=== PATIENT | female | born 1980 | race Caucasian/White ===

== ENCOUNTER 2016-05-27 00:03 | Observation (INO) | payer MEDICAID, OTHER ==
[~2016-05-27] VITALS: Ht 172.7 cm; Wt 89.4 kg
[~2016-05-27 00:03] MED LIST: ONDA4TAB7 PO; OXYC5TAB2 PO; PRAM1.5T7 PO; PRAM1TAB5 PO; ROBAXIN PO; SERT50TA PO
[2016-05-27] MEDS ORDERED: BUPR300T49 PO (00:26)
[2016-05-27] MEDS ORDERED: HYDROmorphone 1 MG/ML, 1ML IVPush PRN (01:00)
[2016-05-27] MEDS ORDERED: SODIUM CHLORIDE FLUSH 10ML SYR IVF PRN (01:00)
[2016-05-27] MEDS ORDERED: HYDROmorphone 1 MG/ML, 1ML ONE (01:10)
[2016-05-27 01:45] VITALS: BP 100/48
[2016-05-27 02:06] VITALS: BP 100/48
[2016-05-27] MEDS ORDERED: POLYETHYLENE GLYCOL 17 GM PACKET PO PRN (03:00)
[2016-05-27] MEDS ORDERED: DOCUSATE 100 MG CAPSULE PO PRN (03:00)
[2016-05-27] MEDS ORDERED: BISACODYL 10 MG SUPP PR PRN (03:00)
[2016-05-27] MEDS ORDERED: ONDANSETRON ODT 4 MG PO PRN (03:00)
[2016-05-27] MEDS ORDERED: ACETAMINOPHEN 325 MG TABLET PO PRN (03:00)
[2016-05-27] MEDS ORDERED: TRAZODONE 50MG TABLET PO PRN (03:00)
[2016-05-27] MEDS ORDERED: ENOXAPARIN 40 MG/0.4 ML SQ SCH (03:00)
[2016-05-27] MEDS ORDERED: LABETALOL 5MG/ML, 20ML IV PRN (03:00)
[2016-05-27] MEDS ORDERED: PRAMIPEXOLE 0.5MG TABLET PO SCH (03:30)
[2016-05-27] MEDS: BUPROPRION MC SCH ×2 (04:30→12:30)
[2016-05-27 05:25] LABS: HEMOGLOBIN 10.8 g/dL (11.7-16.4)
[2016-05-27] MEDS: HYDROcodone/APAP 5/325 TABLET PO PRN ×2 (05:28→12:04)
[2016-05-27 05:34] LABS: BLOOD UREA NITROGEN 12 mg/dL (7-18)
[2016-05-27 05:59] LABS: ASPARTATE AMINO TRANSFERASE 9 U/L (15-37); TOTAL IRON BINDING CAPACITY 380 mcg/dL (250-450)
[2016-05-27] MEDS: SODIUM CHLORIDE 0.9% 1,000 ML IV SCH ×2 (06:05→14:03)
[2016-05-27 07:32] VITALS: BP 103/51
[2016-05-27] MEDS: HYDROmorphone 2 MG/ML, 1ML IVPush PRN ×2 (08:55→15:46)
[2016-05-27] MEDS ORDERED: KETOROLAC 30 MG/1 ML IVPush PRN (09:00)
[2016-05-27] MEDS ORDERED: TEMPLATE NON-FORMULARY MED. (Bupropion Hcl** (Wellbutrin Xl**) 300 MG) PO SCH (09:00)
[2016-05-27] MEDS ORDERED: BUPROPION SR 150 MG TABLET PO SCH (09:00)
[2016-05-27] MEDS ORDERED: OXYcodone/APAP 5/325MG TABLET PO PRN (12:30)
[2016-05-27 14:18] VITALS: BP 106/68
[2016-05-27] MEDS ORDERED: OXYC1TAB7 PO (15:01)
[2016-05-28] MEDS ORDERED: SULF1TAB24 PO (16:05)
== END 2016-05-27 17:04 | disposition home or self-care (01) ==
LOC: ED 00:59 → INTOOBSV 01:00 → 4NOR 01:00 → ED 01:08 → 4WST 05:58 → DCLOUNGE 16:55
PROVIDERS: ADMIT Internal Medicine; ATTEND Internal Medicine
DX: S92.321A Displaced fracture of second metatarsal bone, right foot, initial encounter for closed fracture (principal); S92.331A Displaced fracture of third metatarsal bone, right foot, initial encounter for closed fracture; S92.341A Displaced fracture of fourth metatarsal bone, right foot, initial encounter for closed fracture; K21.9 Gastro-esophageal reflux disease without esophagitis; G25.81 Restless legs syndrome; G89.29 Other chronic pain; M54.9 Dorsalgia, unspecified; E66.9 Obesity, unspecified; F32.9 Major depressive disorder, single episode, unspecified; F15.90 Other stimulant use, unspecified, uncomplicated; R55 Syncope and collapse; W18.30XA Fall on same level, unspecified, initial encounter; Y93.89 Activity, other specified; Y92.89 Other specified places as the place of occurrence of the external cause; Y99.8 Other external cause status; Z98.84 Bariatric surgery status
CPT/HCPCS: 36415; 80053; 82533; 82607; 82728; 82746; 83540; 83550; 84439; 84443; 85025; 93306; 96361; 96372; 96374; 96376; 97161; 99285; G0378; J1170; J1650; J7030

== ENCOUNTER 2016-10-21 13:33 | Inpatient (IN) | payer MEDICAID ==
[~2016-10-21] VITALS: Ht 172.7 cm; Wt 81.4 kg
[~2016-10-21 13:33] MED LIST changes: +BUPR300T49 PO; +OXYC1TAB7 PO; +SULF1TAB24 PO
[2016-10-21] MEDS ORDERED: ONDANSETRON 2MG/ML, 2ML IVPush ONE (14:00)
[2016-10-21] MEDS ORDERED: SODIUM CHLORIDE 0.9% 1,000ML IVBOLUS ONE ×2 (14:00→17:00)
[2016-10-21 14:01] LABS: HEMATOCRIT 34.9 % (34.6-47.8); HEMOGLOBIN 11.2 g/dL (11.7-16.4); WHITE BLOOD COUNT 11.8 x10^3/uL (3.4-10)
[2016-10-21 14:12] LABS: ASPARTATE AMINO TRANSFERASE 10 U/L (15-37); BLOOD UREA NITROGEN 21 mg/dL (7-18)
[2016-10-21] MEDS ORDERED: MORPHINE SULFATE 4 MG/ML, 1ML ONE ×2 (14:35→16:32)
[2016-10-21] MEDS ORDERED: ONDANSETRON 2MG/ML, 2ML ONE (14:35)
[2016-10-21] MEDS: MORPHINE SULFATE 4 MG/ML, 1ML IVPush PRN ×2 (14:52→16:36)
[2016-10-21] MEDS ORDERED: TIZA4TAB PO (15:38)
[2016-10-21] MEDS ORDERED: PROMETHAZINE 25 MG/ML, 1ML ONE (16:32)
[2016-10-21] MEDS ORDERED: SODIUM CHLORIDE 0.9% 1,000 ML IV ONE (16:44)
[2016-10-21] MEDS ORDERED: CEFTRIAXONE PMX 1GM/50ML 50 ML IV ONE (17:00)
[2016-10-21] MEDS ORDERED: PROMETHAZINE 25 MG/ML, 1ML IM ONE (17:00)
[2016-10-21] MEDS ORDERED: CEFTRIAXONE PMX 1GM/50ML 50 ML ONE (17:30)
[2016-10-21] MEDS: SODIUM CHLORIDE 0.9% 1,000 ML IV SCH (18:56)
[2016-10-21] MEDS ORDERED: TIZANIDINE 4MG TABLET PO PRN (19:00)
[2016-10-21] MEDS ORDERED: metroNIDAZOLE 500 MG TABLET PO ONE (19:00)
[2016-10-21] MEDS ORDERED: CEFTRIAXONE PMX 1GM/50ML 50 ML IV SCH (19:30)
[2016-10-21] MEDS: ONDANSETRON 2MG/ML, 2ML IVPush PRN (20:14)
[2016-10-21] MEDS: HEPARIN 5,000 UNITS/ML, 1ML SQ SCH (20:14)
[2016-10-21] MEDS: morphine SULFATE 10 MG/ML, 1ML IVPush PRN (20:39)
[2016-10-21 21:00] VITALS: BP 110/63
[2016-10-21] MEDS ORDERED: PRAMIPEXOLE DI HCL 1.5 MG PO SCH (21:00)
[2016-10-21] MEDS ORDERED: PRAMIPEXOLE 0.5MG TABLET PO SCH (21:00)
[2016-10-21] MEDS: BISACODYL 10 MG SUPP PR SCH (21:59)
[2016-10-22 01:34] VITALS: BP 105/67
[2016-10-22] MEDS: morphine SULFATE 10 MG/ML, 1ML IVPush PRN ×4 (01:51→13:46)
[2016-10-22] MEDS: HEPARIN 5,000 UNITS/ML, 1ML SQ SCH ×2 (03:30→11:30)
[2016-10-22] MEDS: SODIUM CHLORIDE 0.9% 1,000 ML IV SCH ×2 (03:37→08:48)
[2016-10-22] MEDS: ONDANSETRON 2MG/ML, 2ML IVPush PRN ×2 (05:50→13:46)
[2016-10-22 06:04] LABS: HEMATOCRIT 30.3 % (34.6-47.8); HEMOGLOBIN 9.9 g/dL (11.7-16.4); WHITE BLOOD COUNT 7.5 x10^3/uL (3.4-10)
[2016-10-22 06:15] LABS: ASPARTATE AMINO TRANSFERASE 14 U/L (15-37); BLOOD UREA NITROGEN 15 mg/dL (7-18)
[2016-10-22 07:42] VITALS: BP 112/71
[2016-10-22] MEDS: BISACODYL 10 MG SUPP PR SCH (08:45)
[2016-10-22] MEDS ORDERED: BUPROPION SR 150 MG TABLET PO SCH (09:00)
[2016-10-22] MEDS ORDERED: OMNIPAQUE 350 MG/ML, 100ML BOTTLE ONE (10:17)
[2016-10-22 12:41] VITALS: BP 112/66
[2016-10-22] MEDS ORDERED: PANTOPROZOLE 40MG TABLET PO SCH (13:15)
[2016-10-22] MEDS ORDERED: ONDA4TAB10 PO (14:10)
[2016-10-22] MEDS ORDERED: PANT40TA5 PO (14:10)
[2016-10-23] MEDS ORDERED: PANTOPRAZOLE GRAN. PKT 40 MG PO SCH (07:30)
[2016-10-23] MEDS ORDERED: PANTOPROZOLE 40MG TABLET PO SCH (07:30)
== END 2016-10-22 16:37 | disposition home or self-care (01) | DRG 383 ==
LOC: ED 16:03 → EDIP 16:42 → 3NE 18:56 → DCLOUNGE 10-22 16:25
PROVIDERS: ADMIT Family Medicine; ATTEND Family Medicine
DX: K27.9 Peptic ulcer, site unspecified, unspecified as acute or chronic, without hemorrhage or perforation (principal); K85.90 Acute pancreatitis without necrosis or infection, unspecified; E44.0 Moderate protein-calorie malnutrition; K56.7 Ileus, unspecified; A59.9 Trichomoniasis, unspecified; N39.0 Urinary tract infection, site not specified; D64.9 Anemia, unspecified; D75.89 Other specified diseases of blood and blood-forming organs; F32.9 Major depressive disorder, single episode, unspecified; G25.81 Restless legs syndrome; G89.29 Other chronic pain; K21.9 Gastro-esophageal reflux disease without esophagitis; T39.395A Adverse effect of other nonsteroidal anti-inflammatory drugs [NSAID], initial encounter; M54.9 Dorsalgia, unspecified; Z83.3 Family history of diabetes mellitus; Z90.49 Acquired absence of other specified parts of digestive tract; Z98.84 Bariatric surgery status
CPT/HCPCS: 36415; 74020; 74177; 80053; 81001; 83690; 84703; 85025; 87086; 96361; 96372; 96374; 96375; 96376; J0696; J1644; J2405; J2550; Q9967; J2270; J7030

== ENCOUNTER 2017-01-30 10:31 | Emergency (ER) | payer OTHER, MEDICAID ==
[~2017-01-30] VITALS: Ht 172.7 cm; Wt 78.0 kg
[~2017-01-30 10:31] MED LIST changes: +ONDA4TAB10 PO; +PANT40TA5 PO; +TIZA4TAB PO
[2017-01-30 10:53] LABS: HEMATOCRIT 36.6 % (34.6-47.8); WHITE BLOOD COUNT 6.2 x10^3/uL (3.4-10)
[2017-01-30] MEDS ORDERED: ONDANSETRON 2MG/ML, 2ML ONE (10:57)
[2017-01-30] MEDS ORDERED: morphine SULFATE 10 MG/ML, 1ML ONE ×2 (10:57→12:29)
[2017-01-30] MEDS ORDERED: SODIUM CHLORIDE FLUSH 10ML SYR IVF ONE (11:00)
[2017-01-30] MEDS ORDERED: SODIUM CHLORIDE 0.9% 1,000ML IVBOLUS ONE (11:00)
[2017-01-30] MEDS ORDERED: ONDANSETRON 2MG/ML, 2ML IVPush ONE (11:00)
[2017-01-30] MEDS: MORPHINE SULFATE 4 MG/ML, 1ML IVPush PRN ×2 (11:02→12:35)
[2017-01-30 11:04] LABS: ASPARTATE AMINO TRANSFERASE 10 U/L (15-37); BLOOD UREA NITROGEN 16 mg/dL (7-18)
[2017-01-30] MEDS ORDERED: OMNIPAQUE 350 MG/ML, 100ML BOTTLE ONE (11:37)
[2017-01-30 12:52] LABS: PATH.CAST-FLAG NOT PRESENT; SPERM-FLAG NOT PRESENT; SRC-FLAG NOT PRESENT; XTAL-FLAG NOT PRESENT; YLC-FLAG NOT PRESENT
[2017-01-30 13:22] VITALS: BP 101/60
[2017-01-30] MEDS ORDERED: CEFTRIAXONE PMX 1GM/50ML 50 ML IV ONE (13:30)
== END 2017-01-30 13:25 | disposition home or self-care (01) ==
LOC: ED 11:06
DX: R10.12 Left upper quadrant pain (principal); N10 Acute pyelonephritis; Z90.49 Acquired absence of other specified parts of digestive tract; K21.9 Gastro-esophageal reflux disease without esophagitis
CPT/HCPCS: 36415; 74177; 80053; 81001; 83605; 83690; 84703; 85025; 87086; 87147; 96361; 96374; 96375; 96376; 99285; J2405; J7030; Q9967

== ENCOUNTER 2017-04-19 07:07 | Emergency (ER) | payer MEDICAID, OTHER ==
[~2017-04-19] VITALS: Ht 172.7 cm; Wt 85.2 kg
[2017-04-19] MEDS ORDERED: DEXAMETHASONE 4 MG/ML, 1ML IVPush ONE (07:30)
[2017-04-19] MEDS ORDERED: METOCLOPRAMIDE 5 MG/ML, 2ML IVPush ONE (07:30)
[2017-04-19] MEDS ORDERED: SODIUM CHLORIDE FLUSH 10ML SYR IVF ONE (07:30)
[2017-04-19] MEDS ORDERED: KETOROLAC 30 MG/1 ML IVPush ONE (07:30)
[2017-04-19] MEDS ORDERED: SUMATRIPTAN 6MG/0.5ML SQ ONE ×2 (07:30→07:36)
[2017-04-19] MEDS ORDERED: SODIUM CHLORIDE 0.9% 1,000ML IVBOLUS ONE (07:30)
[2017-04-19] MEDS ORDERED: DIPHENHYDRAMINE 50 MG/ML, 1ML IVPush ONE (07:30)
[2017-04-19] MEDS ORDERED: METOCLOPRAMIDE 5 MG/ML, 2ML ONE (07:37)
[2017-04-19] MEDS ORDERED: DIPHENHYDRAMINE 50 MG/ML, 1ML ONE (07:37)
[2017-04-19] MEDS ORDERED: KETOROLAC 30 MG/1 ML ONE (07:37)
[2017-04-19] MEDS ORDERED: DEXAMETHASONE 4 MG/ML, 1ML ONE (07:37)
[2017-04-19 09:56] VITALS: BP 110/50
== END 2017-04-19 09:59 | disposition home or self-care (01) ==
LOC: ED 08:53
DX: G43.009 Migraine without aura, not intractable, without status migrainosus (principal); J20.9 Acute bronchitis, unspecified; F17.200 Nicotine dependence, unspecified, uncomplicated
CPT/HCPCS: 71046; 96361; 96372; 96374; 96375; 99285; J1100; J1200; J1885; J2765; J3030; J7030